=== PATIENT | female | born 1945 | race Caucasian/White ===

== ENCOUNTER 2017-03-19 10:54 | Outpatient (CLI) | payer MEDICARE ==
--- NOTE | 2017-03-19 19:48 | RAD ---
RIGHT KNEE 03/19/17 Typical findings of osteoarthritis are present with medial compartment narrowing and osteophytes. Th ere is not much bony sclerosis of the adjoining surfaces. Patellofemoral osteophytes are present as well as some ossification of the insertion of the quadriceps tendon and patellar tendon on the mendosa la. Some faint arterial calcifications are seen posteriorly. IMPRESSION: Osteoarthritis. POS: HOME
== END 2017-03-19 10:55 | disposition home or self-care (01) ==
LOC: BURRAD 10:54
PROVIDERS: ATTEND Family Medicine
DX: M17.11 Unilateral primary osteoarthritis, right knee (principal)

== ENCOUNTER 2023-09-24 13:46 | Outpatient (CLI) | payer MEDICARE | END 2023-09-24 13:47 | disposition home or self-care (01) | LOC: BURRAD 13:46 | PROVIDERS: ATTEND Family Medicine | DX: M54.31 Sciatica, right side (principal); M47.814 Spondylosis without myelopathy or radiculopathy, thoracic region; M47.816 Spondylosis without myelopathy or radiculopathy, lumbar region; M43.17 Spondylolisthesis, lumbosacral region | CPT/HCPCS: 72100 ==

== ENCOUNTER 2025-06-02 08:57 | Inpatient (IN) | payer MEDICARE ==
[2025-06-02 19:33] VITALS: BMI 32.1
[2025-06-02] MEDS ORDERED: Calcium Carbonate 500 MG ChewTAB PO PRN (21:10)
[2025-06-02] MEDS: Gabapentin 300 MG CAP PO SCH ×2 (23:19→23:22)
[2025-06-02] MEDS: Famotidine 20 MG TAB PO SCH ×2 (23:19→23:20)
[2025-06-02] MEDS: Enoxaparin 40 MG (0.4 mL) SYRINGE SC SCH (23:22)
[2025-06-03 04:55] LABS: Hematocrit 33.1 % (36.0-47.0); Hemoglobin 11.5 g/dL (12.0-16.0); MDiff Complete? YES; Mean Corpuscular Hemoglobin 28.0 pg (27.0-31.0); Mean Corpuscular Volume 80.9 fl (78.0-98.0); Platelet Count 453 10x3/uL (130-400); Red Blood Cell (RBC) Count 4.09 mill/uL (4.20-5.40); White Blood Cell (WBC) Count 8.4 10x3/uL (4.8-10.8)
[2025-06-03 05:03] LABS: ALT (SGPT) 7 U/L (Less than 34); AST (SGOT) 26 U/L (11-34); Albumin 3.2 g/dL (3.1-4.5); Alkaline Phosphatase 34 U/L (40-110); Anion Gap 15 mmol/L (10-20); BUN (Urea Nitrogen) 17 mg/dL (9.8-20.1); Bilirubin, Total 0.3 mg/dL (0.3-1.2); Calc. Creatinine Clearance 73 mL/min (70-130); Calcium 9.0 mg/dL (7.8-10.44); Carbon Dioxide 23 mmol/L (23-31); Chloride 106 mmol/L (98-107); Globulin 2.7 g/dL (2.4-3.5); Glucose 91 mg/dL (83-110); Potassium 4.0 mmol/L (3.5-5.1); Sodium 140 mmol/L (136-145)
[2025-06-03] MEDS: Losartan 50 MG TAB PO SCH (10:11)
[2025-06-03] MEDS: Atenolol 50 MG TAB PO SCH (10:12)
[2025-06-03] MEDS: Chlorthalidone 25 MG TAB PO SCH (10:12)
[2025-06-03] MEDS: Enoxaparin 40 MG (0.4 mL) SYRINGE SC SCH (20:25)
[2025-06-03] MEDS: Methocarbamol 500 MG TAB PO PRN (22:08)
[2025-06-05 08:30] VITALS: BMI 32.1
[2025-06-06] MEDS: Senokot S 8.6-50 MG TAB PO PRN (09:19)
[2025-06-10] MEDS: Acetaminophen 325 MG TAB PO PRN (05:10)
[2025-06-10 05:23] LABS: Anion Gap 16 mmol/L (10-20); BUN (Urea Nitrogen) 60 mg/dL (9.8-20.1); Calc. Creatinine Clearance 52 mL/min (70-130); Calcium 9.3 mg/dL (7.8-10.44); Carbon Dioxide 23 mmol/L (23-31); Chloride 103 mmol/L (98-107); Glucose 106 mg/dL (83-110); Potassium 4.5 mmol/L (3.5-5.1); Sodium 137 mmol/L (136-145)
[2025-06-10 05:24] LABS: Hematocrit 32.5 % (36.0-47.0); Hemoglobin 11.7 g/dL (12.0-16.0); MDiff Complete? YES; Mean Corpuscular Hemoglobin 28.4 pg (27.0-31.0); Mean Corpuscular Volume 78.9 fl (78.0-98.0); Platelet Adequacy Comment Appears Adequate; Platelet Count 362 10x3/uL (130-400); Red Blood Cell (RBC) Count 4.12 mill/uL (4.20-5.40); White Blood Cell (WBC) Count 8.9 10x3/uL (4.8-10.8)
[2025-06-23 12:55] LABS: Hematocrit 31.5 % (36.0-47.0); Hemoglobin 11.7 g/dL (12.0-16.0); MDiff Complete? YES; Mean Corpuscular Hemoglobin 28.5 pg (27.0-31.0); Mean Corpuscular Volume 76.8 fl (78.0-98.0); Microcytosis SLIGHT = 6-15 cells (100X) (0-5/hpf); Platelet Count 397 10x3/uL (130-400); Red Blood Cell (RBC) Count 4.10 mill/uL (4.20-5.40); White Blood Cell (WBC) Count 19.2 10x3/uL (4.8-10.8)
[2025-06-23 12:59] LABS: Anion Gap 15 mmol/L (10-20); BUN (Urea Nitrogen) 41 mg/dL (9.8-20.1); Calc. Creatinine Clearance 49 mL/min (70-130); Calcium 9.0 mg/dL (7.8-10.44); Carbon Dioxide 21 mmol/L (23-31); Chloride 102 mmol/L (98-107); Glucose 136 mg/dL (83-110); Potassium 4.1 mmol/L (3.5-5.1); Sodium 134 mmol/L (136-145)
[2025-06-23] MEDS: Sulfameth/Trimethoprim DS 800-160mg TAB PO SCH ×2 (15:50→22:23)
[2025-06-23 22:20] LABS: Glucose, Urine (Dipstick) Negative (Negative); Leukocyte Negative (Negative); Protein, Urine (Dipstick) Negative (Neg-Trace); Specific Gravity, Urine 1.010 (1.005-1.030)
[2025-06-24] MEDS: Cephalexin 250 MG CAP PO SCH (08:18)
[2025-06-24] MEDS: Sulfameth/Trimethoprim DS 800-160mg TAB PO SCH (09:28)
[2025-06-25 05:35] LABS: Hematocrit 31.7 % (36.0-47.0); Hemoglobin 10.8 g/dL (12.0-16.0); MDiff Complete? YES; Mean Corpuscular Hemoglobin 29.0 pg (27.0-31.0); Mean Corpuscular Volume 84.9 fl (78.0-98.0); Platelet Adequacy Comment Appears Adequate; Platelet Count 321 10x3/uL (130-400); Red Blood Cell (RBC) Count 3.73 mill/uL (4.20-5.40); White Blood Cell (WBC) Count 13.8 10x3/uL (4.8-10.8)
[2025-06-25] MEDS: Famotidine 20 MG TAB PO SCH (09:06)
[2025-06-27 04:59] LABS: Hematocrit 31.8 % (36.0-47.0); Hemoglobin 10.5 g/dL (12.0-16.0); MDiff Complete? YES; Mean Corpuscular Hemoglobin 28.4 pg (27.0-31.0); Mean Corpuscular Volume 85.9 fl (78.0-98.0); Platelet Adequacy Comment Appears Adequate; Platelet Count 341 10x3/uL (130-400); Red Blood Cell (RBC) Count 3.70 mill/uL (4.20-5.40); White Blood Cell (WBC) Count 8.4 10x3/uL (4.8-10.8)
[2025-06-29 05:27] VITALS: BP 109/50; TEMP 97.7
== END 2025-06-29 07:25 | disposition short-term general hospital (02) | DRG 946 ==
LOC: BURMED 18:28
PROVIDERS: ADMIT Family Medicine; ATTEND Family Medicine
PROC: F07Z5ZZ Bed Mobility Treatment (ICD-10-PCS; principal; 2025-06-03)
PROC: F08Z0ZZ Bathing/Showering Techniques Treatment (ICD-10-PCS; 2025-06-03)
DX: R53.81 Other malaise (principal); I10 Essential (primary) hypertension; E78.5 Hyperlipidemia, unspecified; F41.9 Anxiety disorder, unspecified; F32.A Depression, unspecified; Z98.890 Other specified postprocedural states; Z79.899 Other long term (current) drug therapy; C50.919 Malignant neoplasm of unspecified site of unspecified female breast; Z98.1 Arthrodesis status; R26.89 Other abnormalities of gait and mobility
CPT/HCPCS: 36415; 71045; 80048; 80053; 81003; 85025; 87040; 87070; 87077; 87186; 87205; 87428; 97602; J1650